=== PATIENT | male | born 1970 | race Caucasian/White ===

== ENCOUNTER 2021-09-28 05:38 | Emergency (ER) | payer OTHER | END 2021-09-28 06:43 | disposition left against medical advice (07) | LOC: ER1 05:38 | DX: Z53.21 Procedure and treatment not carried out due to patient leaving prior to being seen by health care provider (principal) ==

== ENCOUNTER → 2021-11-01 | Outpatient (CLI) | payer OTHER | LOC: ECHO 11:02 | DX: R06.00 Dyspnea, unspecified (principal) | CPT/HCPCS: ECHO; 93306 ==